=== PATIENT | male | born 1965 | race Two or more races ===

== ENCOUNTER → 2022-02-20 14:49 | Outpatient (BNVA) | payer OTHER, SELFPAY | DX: Z13.9 Encounter for screening, unspecified (principal); N52.9 Male erectile dysfunction, unspecified; N40.1 Benign prostatic hyperplasia with lower urinary tract symptoms; N13.8 Other obstructive and reflux uropathy | CPT/HCPCS: 99202 ==

== ENCOUNTER → 2022-06-02 08:09 | Outpatient (BNVA) | payer OTHER, SELFPAY | PROVIDERS: PCP Internal Medicine; Visit Provider Urology | DX: N40.1 Benign prostatic hyperplasia with lower urinary tract symptoms (principal); N13.8 Other obstructive and reflux uropathy; N52.9 Male erectile dysfunction, unspecified; R35.1 Nocturia; R39.11 Hesitancy of micturition | CPT/HCPCS: 51798; 99212 ==

== ENCOUNTER 2022-07-16 10:37 | Outpatient (REF) | payer OTHER, SELFPAY ==
--- NOTE | ~2022-07-16 | US_ITS ---
EXAMINATION: US PELVIS LIMITED (BLADDER) CLINICAL INFORMATION: Poor urinary stream. COMPARISON: None TECHNIQUE: Real-time imaging of the bladder. FINDINGS: BLADDER: Well distended and normal. Bilateral ureteral jets are demonstrated. Prevoid bladder volume is 790 mL. Postvoid bladder volume is 215 mL. ADDITIONAL FINDINGS: The prostate gland is slightly enlarged and measures 4.2 x 4.6 x 4.2 cm, volume 42 mL. US/US bladder IMPRESSION: Large 215 mL post void bladder residual. Slightly enlarged prostate gland.
== END 2022-07-16 10:38 | disposition home or self-care (01) ==
LOC: HO.US 10:37
PROVIDERS: Visit Provider Urology
DX: R39.12 Poor urinary stream (principal); N40.1 Benign prostatic hyperplasia with lower urinary tract symptoms; N13.8 Other obstructive and reflux uropathy
CPT/HCPCS: 76857

== ENCOUNTER 2022-08-05 09:58 | Outpatient (REF) | payer OTHER, SELFPAY ==
[2022-08-05 17:03] LABS: Urine Cytology See Pathology rpt
== END 2022-08-05 09:59 | disposition home or self-care (01) ==
LOC: HO.LAB 09:58
PROVIDERS: Visit Provider Urology
DX: N40.1 Benign prostatic hyperplasia with lower urinary tract symptoms (principal); N13.8 Other obstructive and reflux uropathy; R31.29 Other microscopic hematuria; R39.11 Hesitancy of micturition; N52.9 Male erectile dysfunction, unspecified; Z79.899 Other long term (current) drug therapy
CPT/HCPCS: 52000; 88112; 99212

== ENCOUNTER 2023-01-28 06:59 | Outpatient (REF) | payer OTHER, SELFPAY ==
[2023-01-28 08:18] LABS: Prostate Specific Antigen 0.41 ng/mL (<0.05-4.0)
== END 2023-01-28 07:00 | disposition home or self-care (01) ==
LOC: HO.LAB 06:59
PROVIDERS: Visit Provider Urology
DX: Z12.5 Encounter for screening for malignant neoplasm of prostate (principal); N13.8 Other obstructive and reflux uropathy; N40.1 Benign prostatic hyperplasia with lower urinary tract symptoms
CPT/HCPCS: 36415; 84153

== ENCOUNTER 2023-02-09 08:32 | Outpatient (REF) | payer OTHER, SELFPAY ==
[2023-02-09 16:55] LABS: Urine Cytology See Pathology rpt
== END 2023-02-09 08:33 | disposition home or self-care (01) ==
LOC: HO.LAB 08:32
PROVIDERS: PCP Internal Medicine; Visit Provider Urology
DX: N40.1 Benign prostatic hyperplasia with lower urinary tract symptoms (principal); R31.29 Other microscopic hematuria; N52.9 Male erectile dysfunction, unspecified; R35.1 Nocturia; N13.8 Other obstructive and reflux uropathy; Z79.899 Other long term (current) drug therapy
CPT/HCPCS: 51798; 88112; 99212

== ENCOUNTER 2023-11-09 08:12 | Outpatient (REF) | payer OTHER, SELFPAY ==
[2023-11-09 09:35] LABS: Appearance Urine Clear; Color Urine Dark Yellow; Glucose Urine UA Negative (Negative); Leukocyte Esterase Urine Negative (Negative); Nitrite Urine Negative (Negative); PH 5.5 (5.0-9.0); UMIC TRIGGER UA YES; Urine Blood Trace (Negative); Urine Ketones Negative (Negative); Urine Protein Negative (Neg-Trace)
[2023-11-09 09:39] LABS: Bacteria Urine None Seen (None Seen); Hyaline Casts Urine 0-2 /LPF (0-2); RBC Urine 0-2 /HPF (0-2); Squamous Epithelial Cell Urine 0-2 /HPF (0-2); WBC Urine 0-5 /HPF (0-5)
== END 2023-11-09 08:13 | disposition home or self-care (01) ==
LOC: HO.LAB 08:12
PROVIDERS: Visit Provider Urology
DX: N40.1 Benign prostatic hyperplasia with lower urinary tract symptoms (principal); N13.8 Other obstructive and reflux uropathy; R35.1 Nocturia; R39.11 Hesitancy of micturition
CPT/HCPCS: 81001; 87086

== ENCOUNTER → 2024-01-26 14:37 | Outpatient (BNVA) | payer OTHER, SELFPAY | PROVIDERS: PCP Internal Medicine; Visit Provider Urology | DX: N40.1 Benign prostatic hyperplasia with lower urinary tract symptoms (principal); N13.8 Other obstructive and reflux uropathy; N52.9 Male erectile dysfunction, unspecified | CPT/HCPCS: 51798; 99212 ==

== ENCOUNTER 2024-01-26 14:38 | Outpatient (AMB) | payer OTHER, SELFPAY ==
--- NOTE | 2024-01-26 14:43 | A.OFFVIS_ITS ---
Intake Visit Reasons: cysto/PVR Intake Note: Patient presents today for a CYSTOSCOPY Procedure: Meds: Tamsulosin, Tadalafil Alfuzosin & Myrbetriq Allergies to Antibiotic: No Known Allergies Blood Thinner: None PVR 0 mL Brewing Director Required: Yes Brewing Director Language: Fisher Eel Name: DORIS Reilly/JONH Ross Information Interpreted: non-clinical & clinical Accompanied by: Self / Same As Patient Allergies No Known Allergies Allergy (Verified 01/26/24 14:45) HPI Comments Details: Adryan is a pleasant male. He is seen for the following urologic conditions - erectile dysfunction - lower urinary tract symptoms Faroese translation provided in office by qualified pesticide use medical coordinator Continues with alfuzosin Can review in 12 months Reports left testicular discomfort. On exam has epididymal scarring. Lower urinary tract symptoms Current therapy alfuzosin Prior therapy tamsulosin with retrograde ejaculation PSA 02/02 0.4 Prior cystoscopy tight prostate Erectile dysfunction Progressive Decline in morning erections Difficulty in gaining and maintaining erection Only using tadalafil on as needed basis with good success [facility] Medical History Tubular adenoma of colon Hematuria Chronic pain in testicle Flank pain Acute gastric ulcer Burning reflux Surgical History History of colonoscopy Review of Systems Const Denies chills and Denies fever(s) Card Reports no additional complaints and Denies syncope Resp Denies cough GI Denies abdominal pain and Denies heartburn Reports as per HPI and Denies change in libido Neuro Denies syncope Psych Denies change in libido Endo Denies change in libido Physical Exam Const General: cooperative, healthy appearing, comfortable and no acute distress Orientation/consciousness: patient oriented x3 HEENT Face and sinus: Yes normal facial exam Mouth: moist mucous membranes Neck Neck: Yes normal visual inspection, Yes full ROM and Yes trachea midline Chest Chest palpation & inspection: normal inspection of the chest Resp Effort & Inspection: normal respiratory effort, able to speak in complete sentences and no respiratory distress GI Inspection: Yes normal to inspection Back/Spine/Pelvis Cervical Spine: normal cervical lordosis Thoracic/Lumbar Spine: thoracic and lumbar spine normal to inspection Skin General skin exam: no rashes or lesions noted Neuro General: patient oriented x3, gait normal, tone normal and moves all extremities Extrem General: Yes normal to inspection and Yes capillary refill normal Office Procedures Post Void Residual Post Residual Void Post Void Residual (PVR): 0 24830-Nxag Void Residual by ultrasound Assessment & Plan Assessment & Plan (1) Erectile dysfunction: Code(s): N52.9 - Male erectile dysfunction, unspecified Category: Medical (2) BPH w urinary obs/LUTS: Code(s): N40.1 - Benign prostatic hyperplasia with lower urinary tract symptoms; N13.8 - Other obstructive and reflux uropathy Category: Medical Plan Twelve month follow-up Orders: Orders AMB Post Void Residual by ultrasound Today N39.8 - Other specified disorders of urinary system Patient Instructions: Imaging studies, laboratory and physical exam results were discussed and reviewed in detail. No major barriers to patient understanding were identified. An opportunity to ask questions regarding the treatment plan was provided. All questions were answered. The patient expressed understanding and agreement with the above treatment plan. The patient is aware they should contact our office by phone for worsening of their current condition or the appearance of new urologic symptoms. Compliance is encouraged with any medications and followup testing that is ordered. It is a privilege to participate in the urologic care of your patient. If you have any questions or concerns regarding treatment for the above conditions, or other urologic issues, please do not hesitate to contact me. The office telephone contact is [phone]. This note is constructed using voice recognition software. While every effort has been made to ensure accuracy user experience researcher errors may have been included. Yours sincerely, Dr Dwight Sierra MD, [facility] - Urology Providers of Expert, Compassionate Care for the Genitourinary System Coding Level of Care Code Est Pt Level 3 (38504) Diagnoses Erectile dysfunction N52.9 BPH w urinary obs/LUTS N40.1; N13.8 CPT Codes Post Residual Void - PVR CPT Code: 00166-Zvdw Void Residual by ultrasound ([id number])
== END 2024-01-26 15:16 | disposition home or self-care (01) ==
PROVIDERS: PCP Internal Medicine; Visit Provider Urology
DX: N52.9 Male erectile dysfunction, unspecified (principal); N40.1 Benign prostatic hyperplasia with lower urinary tract symptoms; N13.8 Other obstructive and reflux uropathy
CPT/HCPCS: 99213

== ENCOUNTER 2025-01-16 07:56 | Outpatient (REF) | payer OTHER, SELFPAY ==
--- OUTSIDE RECORDS SUMMARY | 2025-01-16 08:00 | XMS_ITS | Continuity of Care Document ---
Author Organization [facility] Address [address] [place] [address]- Care Team Providers Care Historic Interpreter Name Role Phone Kalina DEGROOT, Cm Primary Care Physician [phone] [place] [facility] [place]): 12/11/24 - 01/10/25 [facility] [address] [place] [address]- Encounter Type: Triage Allergies, Adverse Reactions, Alerts No Known Medication Allergies Immunizations Given and Recorded Vaccine Date Status Refusal Reason [id number] 12y+ bivalent booster vax 08/12/22 Given influenza virus vaccine, inactivated 07/02/22 Give n influenza virus vaccine, inactivated 09/02/21 Give n influenza virus vaccine, inactivated 06/25/20 Give n influenza virus vaccine, inactivated 08/03/19 Give n influenza virus vaccine, inactivated 07/01/18 Give n influenza virus vaccine, inactivated 06/24/16 Give n influenza virus vaccine, inactivated 1 07/19/15 Gi dirk influenza virus vaccine, inactivated 2 07/27/14 Gi dirk influenza virus vaccine, inactivated 09/22/13 Give n influenza virus vaccine, inactivated 3 11/02/12 Gi dirk SARS-CoV-2 mRNA ([id number]) vax 10/03/21 Recorded SARS-CoV-2 (COVID-19) mRNA BNT-162b2 vac 02/03/21 Recorded SARS-CoV-2 (COVID-19) mRNA BNT-162b2 vac 01/13/21 Recorded tetanus/diphtheria/pertussis, acel(Tdap) 4 11/02/12 Given 1Result Comment: [07/19/2015] VIS in Faroese via spot welder line Jonn 2Result Comment: [07/27/2014] Fluvirax [id number] 3Admin Note: VIS given 03/14/12 4Admin Note: VIS given 10/06/11 Medications Alcohol Pads See Instructions, # 100 each, Refills 11, Tot. Refills 11, Maintenance, Use as directed to monitor finger stick blood sugar three times per day. dx. E11.9 duration: lifetime, 02/16/24 10:10:00 AM EDT, Supply, 167, cm, 02/16/24 9:30:00 EDT, Height Start Date: 02/16/24 Status: Ordered Quantity: 100.0 Unit: each Repeat number: 12 amitriptyline 10 mg oral tablet 10 mg, 1, tablet, By Mouth, Daily at bedtime, # 90 tablet, Refills 5, Tot. Refills 5, Maintenance, 10/24/24 3:14:00 PM EST, Route to Pharmacy Electronically, [facility]/pharmacy #[id number], Partial fill upon patient request if the prescription is for a schedule II opioid drug., 167, cm, 10/24/24 14:33:00 EST, Height Start Date: 10/24/24 Status: Ordered Quantity: 90.0 Unit: tablet Repeat number: 6 atorvastatin 40 mg oral tablet 1 tablet, By Mouth, Daily, # 30 tablet, 11 Refills, Maintenance, 11/22/23 10:14:00 AM EDT, [id number], 167, cm, 11/22/23 9:22:00 EDT, Height Start Date: 11/22/23 Status: Ordered Quantity: 30.0 Unit: tablet Repeat number: 12 diclofenac 1% topical gel = 4 Gm, Topically, 3 times a day, Dx: OA, # 360 Gm, 3 Refills, Maintenance, 11/22/23 10:12:00 AM EDT, Gel, [facility]/pharmacy #[id number], Partial fill upon patient request if the prescription is for a schedule II opioid drug., 167, cm, 11/22/23 9:22:00 EDT, Height Start Date: 11/22/23 Stop Date: 03/21/24 Status: Ordered Quantity: 360.0 Unit: g Repeat number: 4 Freestyle Lite Lancets See Instructions, # 200 each, Refills 11, Tot. Refills 11, Maintenance, Use as directed to monitor finger stick blood sugar three times per day. dx. E11.9 duration: lifetime, 02/16/24 10:09:00 AM EDT, Supply, 167, cm, 02/16/24 9:30:00 EDT, Height Start Date: 02/16/24 Status: Ordered Quantity: 200.0 Unit: each Repeat number: 12 Freestyle Lite Monitor See Instructions, # 1 each, Refills 0, Tot. Refills 0, Maintenance, Use as directed to monitor finger stick blood sugar three times per day. dx. E11.9 duration: lifetime, 02/16/24 10:08:00 AM EDT, Supply, 167, cm, 02/16/24 9:30:00 EDT, Height Start Date: 02/16/24 Status: Ordered Quantity: 1.0 Unit: each Repeat number: 1 Freestyle Lite Test Strips See Instructions, # 150 each, Refills 11, Tot. Refills 11, Maintenance, Use as directed to monitor finger stick blood sugar three times per day. dx. E11.9 duration: lifetime, 02/16/24 10:09:00 AM EDT, Supply, 167, cm, 02/16/24 9:30:00 EDT, Height Start Date: 02/16/24 Status: Ordered Quantity: 150.0 Unit: each Repeat number: 12 LSO brace LSO brace, See Instructions, # 1 each, Refills 0, Tot. 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, lumbar region metFORMIN 500 mg oral tablet 1 tablet, By Mouth, 2 times a day, Please label in chinese with meals, # 180 tablet, 3 Refills, Maintenance, 11/21/24 1:53:00 PM EDT, [facility]/pharmacy #[id number], 167, cm, 11/21/24 13:12:00 EDT, Height Start Date: 11/21/24 Status: Ordered Quantity: 180.0 Unit: tablet Repeat number: 4 omeprazole 40 mg oral enteric coated capsule See Instructions, DOMINIC 1 CAPSULA POR LA BOCA CADA CLINT, # 90 capsule, 1 Refills, Maintenance, 11/21/24 1:53:00 PM EDT, [id number], 167, cm, 11/21/24 13:12:00 EDT, Height Start Date: 11/21/24 Status: Ordered Quantity: 90.0 Unit: capsule Repeat number: 2 tamsulosin 0.4 mg oral capsule 0.4 mg, 1, capsule, By Mouth, Daily, # 90 capsule, Refills 3, Tot. Refills 3, Maintenance, 12/20/24 4:46:00 PM EDT, Route to Pharmacy Electronically, [facility]/pharmacy #[id number], Partial fill upon patient request if the prescription is for a schedule II opioid drug., 167, cm, 12/20/24 15:43:00 EDT, Height Start Date: 12/20/24 Status: Ordered Quantity: 90.0 Unit: capsule Repeat number: 4 Tylenol 325 mg oral capsule 2 capsule = 650 mg, By Mouth, Every 4 hours, PRN as needed for fever, # 90 capsule, 0 Refills, Maintenance, 12/20/24 4:51:00 PM EDT, Capsule, [facility]/pharmacy #[id number], Partial fill upon patient request if the prescription is for a schedule II opioid drug., 167, cm, 12/20/24 15:43:00 EDT, Height Start Date: 12/20/24 Status: Ordered Quantity: 90.0 Unit: capsule Repeat number: 1 Problem List Condition Confirmation Course Effective Dates Status Health Status Informant Abdominal pain - cause unknown 1 Confirmed Active Acute gastric ulcer Confirmed 11/02/12 Active BCC (basal cell carcinoma), face Confirmed Active BPH without urinary obstruction Confirmed Active Hematuria Confirmed Active Disorder of male genital organ Confirmed Active Chronic flank pain Confirmed Active Hx of obesity Confirmed Active Hypercholesterolemia Confirmed 11/02/12 Active Obese class I Confirmed Active Chronic pain in testicle Confirmed Active Reflux Confirmed Active Tubular adenoma of colon 2 Confirmed 02/25/18 Active 1history of hospitalization for abdominal pain- unknow reason 2repeat screening colonoscopy in 2022 Social History Social History Type Response Smoking Status Never (less than 100 in lifetime) entered on: 06/02/22 Sex Sex Representation Male (finding) Patient Care team information Care Team Personnel Name: Cm Gilman MD Position: S Resident Member Role: PCP Address: [address] [place] [address] Telecom: Care Team Related Persons Name: MANNY PACKER Insurance Providers Guarantor name: EDITA VIKKI DNS:Net Plan Information #: 1 Payer: [facility] Member Number: NA Policy Number: NA Group Number: NA
--- OUTSIDE RECORDS SUMMARY | 2025-01-16 08:00 | XMS_ITS | Clinical Summary ---
Author Organization [employer] [facility] ity Address [address] [place] [address] Care Team Providers Care Compliance Testing Analyst Name Role Phone Unavailable Primary Care Provider Unavailabl e Social History Tobacco Use Types Packs/Day Years Used Date Smoking Tobacco: Never Assessed Sex and Gender Information Value Date Recorded Sex Assigned at Not on file Legal Sex Male 8:16 PM EST Gender Identity Not on file Sexual Orientation Not on file Plan of Treatment Health Maintenance Due Date Last Done Comments DTaP,Tdap,and Td Vaccines (1 - Tdap) 1982 Pneumococcal Vaccine: 50+ Ye ars (1 of 1 - PCV) 2013 Zoster Vaccines (1 of 2) 2013 COVID-19 Vaccine ( - 2023-2 5 season) 2024 Influenza Vaccine (Season Ended) 2025 RSV Immunization Adult Patie nts (1 - 1-dose 75+ series) 2038 HIB Vaccines Aged Out No longer eligi ble based on patient's age to complete this topic HPV Vaccines Aged Out No longer eligi ble based on patient's age to complete this topic Hepatitis A Vaccines Aged Out No long er eligible based on patient's age to complete this topic Hepatitis B Vaccines Aged Out No long er eligible based on patient's age to complete this topic IPV Vaccines Aged Out No longer eligi ble based on patient's age to complete this topic MMR Vaccines Aged Out No longer eligi ble based on patient's age to complete this topic Meningococcal ACWY Vaccine Aged Out N o longer eligible based on patient's age to complete this topic Meningococcal B Vaccine Aged Out No l onger eligible based on patient's age to complete this topic Pneumococcal Vaccine: Pediat rics (0 to 5 Years) and At-Risk Patients (6 to 64 Years) Aged Out No longer eligible b ased on patient's age to complete this topic RSV Immunization Patients Un kal 20 months Aged Out No longer eligible b ased on patient's age to complete this topic Varicella Vaccines Aged Out No longer eligible based on patient's age to complete this topic
--- OUTSIDE RECORDS SUMMARY | 2025-01-16 08:00 | XMS_ITS | Clinical Summary ---
Author Organization [facility] Address [address] [place] [address] Care Team Providers Care Lurer Name Role Phone Alireza Manzano Primary Care Provider Source Comments PLEASE NOTE, if this patient is a minor, it may be UNLAWFUL to discuss sensitive information that is contained in these records (such as FAMILY PLANNING, MENTAL HEALTH or SUBSTANCE ABUSE) with the minor patient's parent or other person without the patient's specific authorization.[facility] Social History Tobacco Use Types Packs/Day Years Used Date Smoking Tobacco: Never Assessed Social Connections Answer Date Recorded Social Connections and Isolation 0 12/15/2021 Financial Resource Strain Answer Date R ecorded Financial Resource Strain 0 2021 Stress Answer Date Recorded Stress 0 12/15/2021 Physical Activity Answer Date Recorded Physical Activity 0 12/15/2021 Food Insecurity Answer Date Recorded Food 0 12/15/2021 Transportation Needs Answer Date Record ed Transportation 0 12/15/2021 Housing Stability Answer Date Recorded Housing 0 12/15/2021 Safety and Environment Answer Date Po rded Safety 0 12/15/2021 Utilities Answer Date Recorded Utilities 0 12/15/2021 Employment Answer Date Recorded Employment 0 12/15/2021 Sex and Gender Information Value Date Recorded Sex Assigned at Not on file Legal Sex Male 7:02 AM PST Gender Identity Not on file Sexual Orientation Not on file Plan of Treatment Health Maintenance Due Date Last Done Comments Anxiety Screening 1965 Diabetes Screening 1963 Hepatitis C Screening 1963 Lipid Screening 1963 Tobacco Screening 1963 HIV Screening 1978 Hypertension Screening (#1) 1981 Imm-DTaP/Tdap/Td (1 - Tdap) 1982 CT Colonography 2008 Colonoscopy 2008 Colorectal Cancer Screening 2008 FIT/gFOBT 2008 Fecal DNA 2008 Flexible Sigmoidoscopy 2008 Imm-Zoster, Recombinant (1 of 2) 2013 Bzd-[id number]-58 ( season) 2024 Imm-Influenza (#1) 2024 Alcohol and Drug Screen 09/13/2024 Depression Annual Screen 09/13/2024 Insurance [facility] DENTAL MEDICAID DENTAL [employer] Member Subscriber Plan / Payer (Ef fective 2017-Present) Name:Adryan Serna Relation to Subscriber:Self Name:Adryan Serna Payer ID:[id number] Group ID:Not on file Type:Indemnity Address: [address] [address] [place] [address] Care Teams Lurer Relationship Specialty Start Date End Date Alireza Manzano PA [address] [place] [address] PCP - General Internal Medicine 08/18/17
--- OUTSIDE RECORDS SUMMARY | 2025-01-16 08:00 | XMS_ITS | Continuity of Care Document ---
Author Organization [facility] Address [address] [place] [address]- Care Team Providers Care Natural Sciences Professor Name Role Phone Kalina DEGROOT, Cm Primary Care Physician [phone] [place] [facility] [place] 12/11[place]24 - 01/10/25 [facility] [address] [place] [address]- Encounter Type: Triage Allergies, Adverse Reactions, Alerts No Known Medication Allergies Immunizations Given and Recorded Vaccine Date Status Refusal Reason [id number] 12y+ bivalent booster vax 08/12/22 Given influenza [...] inactivated 3 11/02/12 Gi dirk SARS-CoV-2 mRNA ([id number]) vax 10/03/21 Recorded SARS-CoV-2 (COVID-19) mRNA BNT-162b2 vac 02/03/21 Recorded SARS-CoV-2 (COVID-19) mRNA BNT-162b2 vac 01/13/21 Recorded tetanus/diphtheria/pertussis, acel(Tdap) 4 11/02/12 Given 1Result Comment: [07/19/2015] VIS in [place] Islander via political aide Jonn 2Result Comment: [07/27/2014] Fluvirax [id number] 3Admin Note: VIS given 03/14/12 4Admin Note: [...] 3:14:00 PM EST, Route to Pharmacy Electronically, [facility]/pharmacy #[id number], Partial fill upon patient request if [...] Refills, Maintenance, 11/22/23 10:12:00 AM EDT, Gel, [facility]/pharmacy #[id number], Partial fill upon patient request if [...] 2 times a day, Please label in azeri with meals, # 180 tablet, 3 Refills, Maintenance, 11/21/24 1:53:00 PM EDT, [facility]/pharmacy #[id number], 167, cm, 11/21/24 13:12:00 EDT, Height [...] 4:46:00 PM EDT, Route to Pharmacy Electronically, [facility]/pharmacy #[id number], Partial fill upon patient request if [...] Refills, Maintenance, 12/20/24 4:51:00 PM EDT, Capsule, [facility]/pharmacy #[id number], Partial fill upon patient request if [...] Position: S Resident Member Role: PCP Address: [address] [place] [address] Telecom: Care Team Related Persons Name: MANNY PACKER Insurance Providers Guarantor name: EDITA VIKKI [employer] Plan Information #: 1 Payer: [facility] Member Number: NA Policy Number: NA Group Number: NA
[2025-01-16 11:34] LABS: Prostate Specific Antigen 0.51 ng/mL (<0.05-4.0)
== END 2025-01-16 07:57 | disposition home or self-care (01) ==
LOC: HO.10HDL 07:56
PROVIDERS: Visit Provider Urology
DX: N40.1 Benign prostatic hyperplasia with lower urinary tract symptoms (principal); N13.8 Other obstructive and reflux uropathy
CPT/HCPCS: 36415; 84153

== ENCOUNTER 2025-01-23 10:27 | Outpatient (AMB) | payer OTHER, SELFPAY ==
--- NOTE | 2025-01-23 10:30 | A.OFFVIS_ITS ---
Intake Visit Reasons: 1yr/PVR/PSA Intake Note: pt here today for:1Yr/PVR/PSA uro meds:tamsulosin 0.4mg allergies:None blood thinner:None Pediatric Oncologist Required: Yes Allergies No Known Allergies Allergy (Verified 01/23/25 10:54) HPI Comments Details: Adryan is a pleasant male. He is a patient of . He is seen for the following urologic conditions - erectile dysfunction - lower urinary tract symptoms Cook Islander translation provided in office by qualified medical scientific liaison Yearly follow-up Had run out of alfuzosin Placed on tamsulosin by PCP with adequate response Still bothered by urgency and weakness of stream Recommend prostate procedure Previous left testicular discomfort. On exam has epididymal scarring. PSA low for age. Only needs to be checked every 3-4 years. Lower urinary tract symptoms Current therapy alfuzosin Prior therapy tamsulosin with retrograde ejaculation PSA 02/02 0.4, 02/04 0.5 Prior cystoscopy tight prostate Bladder ultrasound 40 g prostate Erectile dysfunction Progressive Decline in morning erections Difficulty in gaining and maintaining erection Only using tadalafil on as needed basis with good success PFSH Medical History Tubular adenoma of colon Hematuria Chronic pain in testicle Flank pain Acute gastric ulcer Burning reflux Surgical History History of colonoscopy Review of Systems Const Denies chills and Denies fever(s) Card Reports no additional complaints and Denies syncope Resp Denies cough GI Denies abdominal pain and Denies heartburn Reports as per HPI and Denies change in libido Neuro Denies syncope Psych Denies change in libido Endo Denies change in libido Physical Exam Const General: cooperative, healthy appearing, comfortable and no acute distress Orientation/consciousness: patient oriented x3 HEENT Face and sinus: Yes normal facial exam Mouth: moist mucous membranes Neck Neck: Yes normal visual inspection, Yes full ROM and Yes trachea midline Chest Chest palpation & inspection: normal inspection of the chest Resp Effort & Inspection: normal respiratory effort, able to speak in complete sentences and no respiratory distress GI Inspection: Yes normal to inspection Back/Spine/Pelvis Cervical Spine: normal cervical lordosis Thoracic/Lumbar Spine: thoracic and lumbar spine normal to inspection Skin General skin exam: no rashes or lesions noted Neuro General: patient oriented x3, gait normal, tone normal and moves all extremities Extrem General: Yes normal to inspection and Yes capillary refill normal Office Procedures Post Void Residual Post Residual Void Post Void Residual (PVR): 0 [id number]-[id number] Void Residual by ultrasound Assessment & Plan Assessment & Plan (1) Urinary hesitancy: Code(s): R39.11 - Hesitancy of micturition Category: Medical Plan We discussed the nature of the decision and reasonable options for performing a prostate intervention. Interventions include TURP, GreenLight laser enucleation of the prostate, GreenLight laser ablation of the prostate, transurethral incision of the prostate, and I-Tend prostate procedure. Options such as medical therapy were discussed. The relative uncertainties and benefits related to each alternate procedure were adequately discussed. General surgical risks including, but not limited to, pain, bleeding, infection, myocardial infarction, pulmonary embolus, deep vein thrombosis and cerebrovascular accident which may result in further hospitalization were discussed. Full disclosure of the procedure as well as all major risks, benefits and complications were discussed including but not limited to damage to the urethra or bladder neck, recurrent BPH, retrograde ejaculation, bladder infection, urge, de eufemia frequency, incomplete emptying, dysuria, remote chance of erectile dysfunction, epididymitis, and meatal stenosis. The success rate of the procedure was discussed. Success of the procedure in the short-term does not necessarily guarantee that long-term success will be maintained. Suitable follow up will need to be maintained. The patient showed understanding of discussion. An opportunity was provided for questions to be answered and wishes to proceed with the following procedure. - Olympus bipolar button Orders: Orders AMB Post Void Residual by ultrasound Today R39.11 - Hesitancy of micturition, Z13.9 - Encounter for screening, unspecified Patient Instructions: This note is constructed using voice recognition software. While every effort has been made to ensure accuracy telecommunications consultant errors may have been included. Imaging studies, laboratory and physical exam results were discussed and reviewed in detail. No major barriers to patient understanding were identified. An opportunity to ask questions regarding the treatment plan was provided. All questions were answered. The patient expressed understanding and agreement with the above treatment plan. The patient is aware they should contact our office by phone for worsening of their current condition or the appearance of new urologic symptoms. Compliance is encouraged with any medications and followup testing that is ordered. It is a privilege to participate in the urologic care of your patient. If you have any questions or concerns regarding treatment for the above conditions, or other urologic issues, please do not hesitate to contact me. The office telephone contact is [phone]. Sincerely, Dr Dwight Sierra MD, [facility] - Urology Compassionate Specialist Care for the Genitourinary System Coding Level of Care Code Est Pt Level 4 (57742) Complex EM visit Add On G2211 Diagnoses Urinary hesitancy R39.11 CPT Codes Post Residual Void - PVR CPT Code: 06473-Sphu Void Residual by ultrasound ([id number])
--- OUTSIDE RECORDS SUMMARY | 2025-01-23 11:33 | XMS_ITS | Clinical Summary ---
Author Organization [facility] ity Address [address] [place] [address] Care Team Providers Care Equal Opportunity Representative Name Role Phone Unavailable Primary Care Provider [...]
--- OUTSIDE RECORDS SUMMARY | 2025-01-23 11:33 | XMS_ITS | Clinical Summary ---
Author Organization [facility] Address [address] [place] [address] Care Team Providers Care Fretted Instrument Maker Hand Name Role Phone Alireza Manzano Primary Care Provider [phone] Source Comments PLEASE NOTE, if this patient [...] 2008 Imm-Zoster, Recombinant (1 of 2) 2013 [id number] ( season) 2024 Imm-Influenza (#1) 2024 Alcohol and Drug Screen 09/13/2024 Depression Annual Screen 09/13/2024 Insurance [facility] DENTAL MEDICAID DENTAL [employer] Member Subscriber Plan / Payer (Ef fective 2017-Present) Name:Adryan Serna Relation to Subscriber:Self Name:Adryan Serna Payer ID:[id number] Group ID:Not on file Type:Indemnity Address: [address] [address] [place] [address] Care Teams Fretted Instrument Maker Hand Relationship Specialty Start Date End Date Alireza Manzano PA [address] [place] [address] PCP - General Internal Medicine 08/18/17
== END 2025-01-23 11:15 | disposition home or self-care (01) ==
LOC: HO.HUSH 10:28
PROVIDERS: PCP Internal Medicine; Visit Provider Urology
DX: R39.11 Hesitancy of micturition (principal)
CPT/HCPCS: 99214; G2211

== ENCOUNTER → 2025-01-23 10:27 | Outpatient (BNVA) | payer OTHER, SELFPAY | PROVIDERS: PCP Internal Medicine; Visit Provider Urology | DX: R39.11 Hesitancy of micturition (principal) | CPT/HCPCS: 51798; 99212 ==

== ENCOUNTER 2025-03-19 08:00 | Day surgery (SDC) | payer OTHER, SELFPAY ==
--- OUTSIDE RECORDS SUMMARY | 2025-02-19 09:53 | XMS_ITS | Clinical Summary ---
Author Organization [facility] ity Address [address] [place] [address] Care Team Providers Care Mainframe Programmer Analyst Name Role Phone Unavailable Primary Care [...]
[2025-03-14 09:24] VITALS: BMI 31.9
--- NOTE | 2025-03-15 09:05 | HO.ANESPROP2 ---
Documented by User: Elda Oneill NP 03/15/25 09:06 HPI - Anesthesia Eval Consult details Narrative: 59yo M for TUR Prostate with bipolar button PMFSH Active Problems Active Problems: All Active Problems Urinary hesitancy (Acute) Nocturia (Acute) Erectile dysfunction (Acute) BPH w urinary obs/LUTS (Acute) Past Medical History Medical History Tubular adenoma of colon Hematuria Chronic pain in testicle Flank pain Acute gastric ulcer Burning reflux Surgical History Surgical History History of colonoscopy Social History Social History Patient Tobacco Use Status: Never used Tobacco Use of substances other than those prescribed or required for medical reasons: No Advance Directives: No Advance Directives Information Provided: Yes Meds Allergies Allergy/AdvReac Type Severity Reaction Status Date / Time No Known Allergies Allergy Verified 01/23/25 10:54 Home Medications ?Medication ?Instructions ?Recorded ?Confirmed ?Last Taken ?Type tamsulosin 0.4 mg capsule (Flomax) 0.4 mg PO BEDTIME 02/20/22 02/09/23 Unknown History amitriptyline 25 mg tablet 25 mg PO BEDTIME 06/01/22 02/09/23 Unknown History atorvastatin 40 mg tablet 40 mg PO DAILY PRN 06/01/22 02/09/23 Unknown History famotidine 20 mg tablet 20 mg PO BID 06/01/22 02/09/23 Unknown History diclofenac sodium 50 mg 0 mg PO DAILY PRN 08/03/22 02/09/23 Unknown History tablet,delayed release gabapentin 300 mg capsule 0 mg PO 08/03/22 02/09/23 Unknown History meloxicam 15 mg tablet 15 mg PO DAILY 02/09/23 02/09/23 Unknown History omeprazole 40 mg capsule,delayed 40 mg PO DAILY 02/09/23 02/09/23 Unknown History release Exam Height,Weight and Vital Signs: Height 5 ft 5.75 in Weight 89 kg Assessment and Plan Assessment Anesthesia Assessment: Chart Reviewed Documented by User: Kael Esquivel MD 03/19/25 09:10 [facility] Past Medical History Medical History Tubular adenoma of colon Hematuria Chronic pain in testicle Flank pain Acute gastric ulcer Burning reflux Family History Family history of problems with anesthesia: No Surgical History Surgical History History of colonoscopy History of Problems with Anesthesia: No Social History Social History Patient Tobacco Use Status: Never used Tobacco Use of substances other than those prescribed or required for medical reasons: No Advance Directives: No Advance Directives Information Provided: Yes Meds Allergies Allergy/AdvReac Type Severity Reaction Status Date / Time No Known Allergies Allergy Verified 01/23/25 10:54 Home Medications ?Medication ?Instructions ?Recorded ?Confirmed ?Last Taken ?Type tamsulosin 0.4 mg capsule (Flomax) 0.4 mg PO BEDTIME 02/20/22 02/09/23 Unknown History amitriptyline 25 mg tablet 25 mg PO BEDTIME 06/01/22 02/09/23 Unknown History atorvastatin 40 mg tablet 40 mg PO DAILY PRN 06/01/22 02/09/23 Unknown History famotidine 20 mg tablet 20 mg PO BID 06/01/22 02/09/23 Unknown History diclofenac sodium 50 mg 0 mg PO DAILY PRN 08/03/22 02/09/23 Unknown History tablet,delayed release gabapentin 300 mg capsule 0 mg PO 08/03/22 02/09/23 Unknown History meloxicam 15 mg tablet 15 mg PO DAILY 02/09/23 02/09/23 Unknown History omeprazole 40 mg capsule,delayed 40 mg PO DAILY 02/09/23 02/09/23 Unknown History release Exam Airway Mallampati Class: I TM Dist: <=3cm Neck ROM: Full Loose/Missing/Broken Teeth: No Heart: ok Lungs: ok Assessment and Plan Assessment Anesthesia Assessment: Anesthesia Plan Discussed Final Anesthetic Review Family History of Problems with Anesthesia: No History of Problems with Anesthesia: No NPO: Yes ASA Class: II Final Preanesthetic Review: No Changes in Pt Med Stat, Meds/Allgs Chart Reviewed, Consent Obtained/Reviewed and Anes Risks/Benef Reviewed Patient Risk: Intermediate Procedure Risk: Low Anesthetic Plan Anesthetic Plan: GA and Agree w/ Assess. and Plan Disposition: Standard PACU
[2025-03-19 08:06] VITALS: BMI 31.0
[2025-03-19 08:23] VITALS: BP 149/81; PULSE 77; RESP 16; TEMP 36.5; O2SAT 98
[2025-03-19] MEDS: Lactated Ringers 1,000 ML 100 ML IVCONT (08:28)
--- NOTE | 2025-03-19 09:42 | MHC.SHP ---
Pre-Procedural Eval Section A - 24 Hr Update-Section A only Date of Service: 03/19/25 The patient is an INPATIENT: No Changes since office visit: No Cold of Flu in the past 2 weeks, No New Medical Problems, No Changes in Medication and No Patient answered all questions The patient has been examined within 24 hours of the surgical procedure. The History & Physical has been completed within 30 days and I have reviewed it.: Yes Section B - Complete if H&P > 30 days Chief Complaint: Bladder-neck obstruction Details of Present Illness: Plasma bipolar transurethral incision of the prostate Allergies: Allergies Allergy/AdvReac Type Severity Reaction Status Date / Time No Known Allergies Allergy Verified 01/23/25 10:54 Review of Systems Sugical H&P ROS: Negative: Constitution, Cardiovascular, Respiratory, Neurological, Psychiatric, Hem-Onc, Allergic/Immunologic, Gastrointestinal, Genitourinary, Musculoskeletal, Integumentary, Endocrine and Eyes/Ears/Nose/Throat Exam Surgical H&P Exam: Normal: HEENT, Normal: Heart, Normal: Lungs, Normal: Extremities, Normal: Abdomen, Normal: Skin and Normal: Neurological Plan Diagnosis/Plan: Unchanged I have reviewed the history and physical and performed a pertinent physical examination on my patient. No changes have occurred unless specified. Time Spent With Patient Time: Total time managing care of this patient today ____ minutes.
--- NOTE | 2025-03-19 10:17 | P.OP_ITS ---
Operative Note Operative Note Date of Service: 03/19/25 Narrative: PreOperative Diagnosis: Bladder outlet obstruction Post Operative Diagnosis: Bladder outlet obstruction Procedure: CPT 65400 - Transurethral electrosurgical prostate resection Surgeon: Dr Dwight Sierra Anesthesia: General History of bladder outlet obstruction. Treated with alpha-sherri and other medications. Still with symptoms. On cystoscopy in office has tight bladder neck. Recommendation for prostate procedure with plasma button Transurethral electrosurgical prostate resection. Size of prostate less than 40 cc. Risks and benefits have been discussed. Focus was placed on development of retrograde ejaculation which is a normal part of this procedure. Procedure: After informed consent was verified the patient was brought to the operating room and placed in a supine position. Anesthesia was administered per protocol. Patient was placed in modified dorsal lithotomy position and prepped and draped in a sterile fashion. Safety pause time-out was confirmed. Antibiotics have been given. A Twenty-four Jamaican cystoscope with visual obturator was inserted per urethra. No abnormalities were found of the anterior and bulbar urethra. The prostatic urethra shows tight bladder neck. The bladder was examined and both ureteric orifices were seen in their normal positions away from the area of interest. Bladder trabeculation grade 2. The visual obturator was removed and replaced with a plasma button resection loop. Using the plasma button incisions were made at the 5 and 7 o'clock position. The initial incision was made at the 7 o'clock position starting level with the bladder neck and in line with ureteric orifice on that side. The groove was extended distally to the area just proximal of the veru. This groove was deepened with multiple passes to define the lateral aspects of the median lobe area. The proximal portion of the groove was extended through the bladder neck and remained in line with the ureteric orifice on each side. The goal was to reveal prostate strands from the surgical capsule. Once clearly defined the groove was extended in the lateral direction. The 05:00 o'clock position groove was then created in a similar fashion. In this case due to the smaller prostate size a decision was made not to proceed with further resection of the lateral lobes. Both ureteric orifices were reviewed again in shown to be patent in away from any areas of energy damage. The apical area was reviewed and any stray mucosal ooze was controlled. A 22 Jamaican 30 cc balloon Benoit catheter was placed into the bladder using a flexible stylet. Clear efflux was obtained upon irrigation with a Iain piston syringe. 30 cc was placed in the balloon and gentle traction was placed. A snap was used to hold tension on the catheter to control bleeding during patient moved and transported. A drainage bag was placed. Once transportation is complete to the PACU the snap will be removed. The patient tolerated the procedure well, he was extubated in the operating and transferred in a stable condition to the recovery area. Pathology: None Drains: Benoit catheter
[2025-03-19 10:32] VITALS: BP 139/96; PULSE 91; RESP 11; TEMP 36.3; O2SAT 93
[2025-03-19 10:37] VITALS: BP 142/96; PULSE 85; RESP 12; O2SAT 95
[2025-03-19 10:42] VITALS: BP 139/94; PULSE 75; RESP 16; O2SAT 95
[2025-03-19 10:47] VITALS: BP 148/88; PULSE 75; RESP 16; O2SAT 97
[2025-03-19 11:24] VITALS: TEMP 36.5
== END 2025-03-19 11:46 | disposition home or self-care (01) ==
PROVIDERS: PCP Family Medicine; Visit Provider Urology
PROC: 0VT08ZZ Resection of Prostate, Via Natural or Artificial Opening Endoscopic (ICD-10-PCS; CPT 52601; principal; 2025-03-19 09:50)
DX: N32.0 Bladder-neck obstruction (principal); N32.89 Other specified disorders of bladder; N50.819 Testicular pain, unspecified; R39.11 Hesitancy of micturition; N52.9 Male erectile dysfunction, unspecified; K21.9 Gastro-esophageal reflux disease without esophagitis; Z79.899 Other long term (current) drug therapy
CPT/HCPCS: 52601; A4649; J1956; J2003; J2704; J3010

== ENCOUNTER → 2025-03-19 08:00 | Outpatient (BNV) | payer OTHER, SELFPAY | PROVIDERS: PCP Family Medicine; Visit Provider Urology | DX: N32.0 Bladder-neck obstruction (principal) | CPT/HCPCS: 52601 ==

== ENCOUNTER 2025-04-10 13:37 | Outpatient (AMB) | payer OTHER, SELFPAY ==
--- NOTE | 2025-04-10 13:37 | MHC.OFFVIS ---
Intake Visit Reasons: TURP follow up Intake Note: pt here today for Post -OP for TURP uro meds:tamsulosin, alfuzosin, myrbetriq Amitriptyline,Tadalafil allergies:None blood thinner:None PVR 45 mls Savings Counselor Required: Yes Accompanied by: Self / Same As Patient Allergies No Known Allergies Allergy (Verified 04/10/25 13:40) Medication List - Last Reconciled 04/10/25 by Dwight Sierra MD amitriptyline 25 mg PO BEDTIME atorvastatin 40 mg PO DAILY PRN diclofenac sodium 0 mg PO DAILY PRN famotidine 20 mg PO BID gabapentin 0 mg PO meloxicam 15 mg PO DAILY omeprazole 40 mg PO DAILY HPI Comments Details: Adryan is a pleasant male. He is a patient of . He is seen for the following urologic conditions - erectile dysfunction - lower urinary tract symptoms Icelandic translation provided in office by qualified medical staff manager 6 week follow-up bladder emptying Low PVR Occasional blood Emptying well Happy with stream Previous left testicular discomfort. On exam has epididymal scarring. PSA low for age. Only needs to be checked every 3-4 years. Six-month follow-up lab work Lower urinary tract symptoms Current therapy alfuzosin Prior therapy tamsulosin with retrograde ejaculation PSA 02/02 0.4, 02/04 0.5 Prior cystoscopy tight prostate Bladder ultrasound 40 g prostate Plasma button prostate procedure 03/07 Erectile dysfunction Progressive Decline in morning erections Difficulty in gaining and maintaining erection Only using tadalafil on as needed basis with good success PFSH Medical History Tubular adenoma of colon Hematuria Chronic pain in testicle Flank pain Acute gastric ulcer Burning reflux Surgical History History of colonoscopy Social History Patient Tobacco Use Status: Never used Tobacco Review of Systems Const Denies chills and Denies fever(s) Card Reports no additional complaints and Denies syncope Resp Denies cough GI Denies abdominal pain and Denies heartburn Reports as per HPI and Denies change in libido Neuro Denies syncope Psych Denies change in libido Endo Denies change in libido Physical Exam Const General: cooperative, healthy appearing, comfortable and no acute distress Orientation/consciousness: patient oriented x3 HEENT Face and sinus: Yes normal facial exam Mouth: moist mucous membranes Neck Neck: Yes normal visual inspection, Yes full ROM and Yes trachea midline Chest Chest palpation & inspection: normal inspection of the chest Resp Effort & Inspection: normal respiratory effort, able to speak in complete sentences and no respiratory distress GI Inspection: Yes normal to inspection Back/Spine/Pelvis Cervical Spine: normal cervical lordosis Thoracic/Lumbar Spine: thoracic and lumbar spine normal to inspection Skin General skin exam: no rashes or lesions noted Neuro General: patient oriented x3, gait normal, tone normal and moves all extremities Extrem General: Yes normal to inspection and Yes capillary refill normal Assessment & Plan Assessment & Plan (1) BPH w urinary obs/LUTS: Code(s): N40.1 - Benign prostatic hyperplasia with lower urinary tract symptoms; N13.8 - Other obstructive and reflux uropathy Category: Medical (2) Erectile dysfunction: Code(s): N52.9 - Male erectile dysfunction, unspecified Category: Medical Plan Six-month follow-up lab work Orders: Orders Creatinine 6 Months N13.8 - Other obstructive and reflux uropathy, N40.1 - Benign prostatic hyperplasia with lower urinary tract symptoms Prostate Specific Antigen 6 Months N13.8 - Other obstructive and reflux uropathy, N40.1 - Benign prostatic hyperplasia with lower urinary tract symptoms Patient Instructions: This note is constructed using voice recognition software. While every effort has been made to ensure accuracy nitroglycerin separator operator errors may have been included. Imaging studies, laboratory and physical exam results were discussed and reviewed in detail. No major barriers to patient understanding were identified. An opportunity to ask questions regarding the treatment plan was provided. All questions were answered. The patient expressed understanding and agreement with the above treatment plan. The patient is aware they should contact our office by phone for worsening of their current condition or the appearance of new urologic symptoms. Compliance is encouraged with any medications and followup testing that is ordered. It is a privilege to participate in the urologic care of your patient. If you have any questions or concerns regarding treatment for the above conditions, or other urologic issues, please do not hesitate to contact me. The office telephone contact is [phone]. Sincerely, Dr Dwight Sierra MD, [facility] - Urology Compassionate Specialist Care for the Genitourinary System Coding Level of Care Code Est Pt Level 3 (74885) Diagnoses BPH w urinary obs/LUTS N40.1; N13.8 Erectile dysfunction N52.9
--- OUTSIDE RECORDS SUMMARY | 2025-04-10 14:25 | XMS_ITS | Clinical Summary ---
Author Organization [facility] [facility] ity Address [address] [place] [address] Care Team Providers Care Aviculturist Name Role Phone Unavailable Primary Care Provider [...] Vaccines (1 of 2) 2013 COVID-19 Vaccine (1 - 2023-2 5 season) 2024 Depression Screening 09/13/2024 Influenza Vaccine (#1) 2025 RSV Immunization Adult Patie nts (1 [...]
--- OUTSIDE RECORDS SUMMARY | 2025-04-10 14:25 | XMS_ITS | Clinical Summary ---
Author Organization [facility] Address [address] [place] [address] Care Team Providers Care Program Clinician Name Role Phone Alireza Manzano Primary Care Provider [phone] Source Comments PLEASE NOTE, if this patient [...] 2008 Fecal DNA 2008 Flexible Sigmoidoscopy 2008 Imm-Pneumococcal 50+ (1 of 1 - PCV) 2013 Imm-Zoster, Recombinant (1 of 2) 2013 [id number] (1 - season) 2024 Alcohol and Drug Screen 09/13/2024 Depression Annual Screen 09/13/2024 Imm-Influenza (#1) 2025 Insurance [facility] DENTAL MEDICAID DENTAL [facility] Member Subscriber Plan / Payer (Ef fective 2017-Present) Name:Adryan Serna Relation to Subscriber:Self Name:Adryan Serna Payer ID:[id number] Group ID:Not on file Type:Indemnity Address: [address] [address] [place] [address] Care Teams Program Clinician Relationship Specialty Start Date End Date Alireza Manzano PA [address] [place] [address] PCP - General Internal Medicine 08/18/17
== END 2025-04-10 15:27 | disposition home or self-care (01) ==
LOC: HO.HUSH 13:37
PROVIDERS: PCP Internal Medicine; Visit Provider Urology
DX: N40.1 Benign prostatic hyperplasia with lower urinary tract symptoms (principal); N13.8 Other obstructive and reflux uropathy; N52.9 Male erectile dysfunction, unspecified; Z13.9 Encounter for screening, unspecified
CPT/HCPCS: 99024

== ENCOUNTER → 2025-04-10 13:37 | Outpatient (BNVA) | payer OTHER, SELFPAY | PROVIDERS: PCP Internal Medicine; Visit Provider Urology | DX: N40.1 Benign prostatic hyperplasia with lower urinary tract symptoms (principal); N13.8 Other obstructive and reflux uropathy; N52.9 Male erectile dysfunction, unspecified | CPT/HCPCS: 51798; 81003; 99212 ==